=== PATIENT | female | born 2005 | race Caucasian/White ===

== ENCOUNTER 2024-10-15 18:38 | Emergency (ER) | payer MEDICAID ==
[~2024-10-15] VITALS: Ht 154.9 cm; Wt 63.0 kg
[2024-10-15 18:44] VITALS: O2SAT 97
[2024-10-15 18:56] VITALS: BP 93/50; PULSE 86; RESP 16; TEMP 37.2; O2SAT 98
== END 2024-10-15 22:34 | disposition home or self-care (01) ==
LOC: ER 18:38
DX: U07.1 COVID-19 (principal)
CPT/HCPCS: 81025; 87070; 87426; 87430; 99283